=== PATIENT | female | born 1985 | race Caucasian/White ===

== ENCOUNTER 2017-09-25 21:53 | Emergency (ER) | payer SELFPAY ==
[~2017-09-25] VITALS: Ht 157.5 cm; Wt 59.0 kg
[~2017-09-25 21:53] MED LIST: AZIT250T6 PO; FLUT9.9S NS
[2017-09-25 22:14] VITALS: BP 131/78
[2017-09-26 00:09] LABS: BASO % 1 % (0-3); EOS # 0.6 x10^3/uL (0.0-0.7); EOS % 9 % (0-3); HEMATOCRIT 34.4 % (36.0-47.0); HEMOGLOBIN 11.4 g/dL (12.0-15.5); LYMPH # 2.6 x10^3/uL (1.0-4.8); LYMPH % 36 % (24-48); MEAN CORPUSCULAR HEMOGLOBIN 27 pg (25-35); MEAN CORPUSCULAR HGB CONC 33 g/dL (31-37); MEAN CORPUSCULAR VOLUME 82 fL (79-100); MONO # 0.5 x10^3/uL (0.0-1.1); MONO % 7 % (0-9); NEUT # 3.5 x10^3uL (1.8-7.7); NEUT % 48 % (31-73); PLATELET COUNT 113 x10^3/uL (140-400); RED BLOOD COUNT 4.18 x10^6/uL (3.50-5.40); RED CELL DISTRIBUTION WIDTH 15.4 % (11.5-14.5); WHITE BLOOD COUNT 7.2 x10^3/uL (4.0-11.0)
[2017-09-26 00:11] LABS: ALBUMIN 4.1 g/dL (3.4-5.0); ALBUMIN/GLOBULIN RATIO 1.2 (1.0-1.7); CALCIUM 9.1 mg/dL (8.5-10.1); CREATININE 0.6 mg/dL (0.6-1.0); GFR 114.4; POTASSIUM 4.5 mmol/L (3.5-5.1); TOTAL BILIRUBIN 0.3 mg/dL (0.2-1.0); TOTAL PROTEIN 7.6 g/dL (6.4-8.2)
--- NOTE | 2017-09-26 00:13 | PHYS DOC ---
Past History Past Medical History: No Pertinent History Past Surgical History: Appendectomy Alcohol Use: None Drug Use: Marijuana, Methamphetamine Adult General Chief Complaint Chief Complaint: TEST [facility] HPI 32-year-old female presents with concern for and abdominal distention. Patient states that a few months ago she had negative test then had some considerable vaginal bleeding. Patient states taking a urinary test yesterday that it was positive. She told the test because she has had some expansion of her abdomen that is similar to previous pregnancies. She also states having breast tenderness. She wants to confirm whether or not she is and if not more her abdomen is expanding. She denies fever or chills. She admits to recent methamphetamine use in the last week. Review of Systems Review of Systems Constitutional: Denies fever or chills [] Eyes: Denies change in visual acuity, redness, or eye pain [] HENT: Denies nasal congestion or sore throat [] Respiratory: Denies cough or shortness of breath [] Cardiovascular: No additional information not addressed in HPI [] GI: Abdominal distention[] : Denies dysuria or hematuria [] Musculoskeletal: Denies back pain or joint pain [] Integument: Denies rash or skin lesions [] Neurologic: Denies headache, focal weakness or sensory changes [] Endocrine: Denies polyuria or polydipsia [] All other systems were reviewed and found to be within normal limits, except as documented in this note. Allergies Allergies Allergies Coded Allergies Type Severity Reaction Last Updated Verified No Known Drug Allergies 12/04/15 No Physical Exam Physical Exam Constitutional: Well developed, well nourished, no acute distress, non-toxic appearance. [] HENT: Normocephalic, atraumatic, bilateral external ears normal, oropharynx moist, no oral exudates, nose normal. [] Eyes: PERRLA, EOMI, conjunctiva normal, no discharge. [] Neck: Normal range of motion, no tenderness, supple, no stridor. [] Cardiovascular:Heart rate regular rhythm, no murmur [] Lungs & Thorax: Bilateral breath sounds clear to auscultation [] Abdomen: Bowel sounds normal, soft, no tenderness. Patient's abdomen could be consistent with . There does appear to be a mass in her abdomen with palpation. [] Skin: Warm, dry, no erythema, no rash. [] Back: No tenderness, no CVA tenderness. [] Extremities: No tenderness, no cyanosis, no clubbing, ROM intact, no edema. [] Neurologic: Alert and oriented X 3, normal motor function, normal sensory function, no focal deficits noted. [] Psychologic: Affect normal, judgement normal, mood normal. [] Current Patient Data Vital Signs Vital Signs Date Time Temp Pulse Resp B/P (MAP) Pulse Ox O2 Delivery O2 Flow Rate FiO2 09/25/17 22:14 98.5 89 20 100 Room Air EKG EKG [] Radiology/Procedures Radiology/Procedures [] Impressions: PATIENT: NAZARIO LEHMAN ACCOUNT: [id number] : 1985 LOCATION: ER AGE: 32 SEX: F EXAM STATUS: REG ER ORD. PHYSICIAN: JASON MIKE DO REASON: rule out retained fetus after negative urine PROCEDURE: US PELVIS W/TV Ultrasound pelvis complete and transvaginal ultrasound:: IUD for 4 years has positive test at home followed by a negative urine test Sonographic examination of the pelvis was performed by transabdominal and endovaginal technique and multiple static images were obtained. Ultrasound pelvis complete transabdominal: The IUD appears appropriately seated in the uterus. Transvaginal ultrasound pelvis: The endometrial the uterus measures 7.6 mm in thickness. The right ovary appears normal with normal blood flow measures 1.9 x 3.2 x 2.1 centers. Left ovary is seen with normal blood flow measures 1.9 x 4.0 x 2.2 centers. There is a probable collapsing cyst the left ovary that measures 14 x 12 x 12 mm. There is no free fluid. IMPRESSION: 1. IUD appears well seated in the uterus. 2. No significant findings. Electronically signed by: Josephine Magana III, MD (09/26/2017 12:31 AM) [facility] DICTATED AND SIGNED BY: JOSEPHINE MAGANA III, MD DATE: 09/26/17 0027 CC: JASON MIKE DO; PCP,NO ~ Course & Med Decision Making Course & Med Decision Making Pertinent Labs and Imaging studies reviewed. (See chart for details) The patient's urine was negative. After examining the patient, she does appear that she could be . It seems as though there is something in her abdomen palpable on the right side. I will order serum as well as an ultrasound for further clarification. Patient's ultrasound does not show any significant findings. Soon after the patient's ultrasound, she walked out without telling anyone. She has not returned. She has left AMA. [] Dragon Disclaimer Dragon Disclaimer This electronic medical record was generated, in whole or in part, using a voice recognition dictation system. Departure Departure: Referrals: PCP,NO (PCP) JASON MIKE DO Sep 26, 2017 00:13
--- NOTE | 2017-09-26 00:35 | RAD ---
Ultrasound pelvis complete and transvaginal ultrasound:: IUD for 4 years has positive test at home followed by a negative urine test Sonographic examination of the pelvis was performed by transabdominal and endovaginal technique and multiple static images were obtained. Ultrasound pelvis complete transabdominal: The IUD appears appropriately seated in the uterus. Transvaginal ultrasound pelvis: The endometrial the uterus measures 7.6 mm in thickness. The right ovary appears normal with normal blood flow measures 1.9 x 3.2 x 2.1 centers. Left ovary is seen with normal blood flow measures 1.9 x 4.0 x 2.2 centers. There is a probable collapsing cyst the left ovary that measures 14 x 12 x 12 mm. There is no free fluid. IMPRESSION: 1. IUD appears well seated in the uterus. 2. No significant findings. Electronically signed by: Edgar Wayne III, MD (09/26/2017 12:31 AM) [facility]
== END 2017-09-26 00:21 | disposition left against medical advice (07) ==
LOC: ER 21:53
DX: Z32.02 Encounter for pregnancy test, result negative (principal); R14.0 Abdominal distension (gaseous); F12.10 Cannabis abuse, uncomplicated; F15.10 Other stimulant abuse, uncomplicated; Z90.89 Acquired absence of other organs
CPT/HCPCS: 36415; 76830; 76856; 80053; 81025; 84702; 85025; 99285-25